=== PATIENT | male | born 1985 | race American Indian/Alaskan Native ===

== ENCOUNTER 2016-10-01 02:23 | Observation (INO) | payer OTHER ==
--- NOTE | 2016-10-01 03:25 | ED PDOC ---
HPI: Psych/Substance Abuse <Steve Monsalve - Last Filed: 10/01/16 06:47> Chief Complaint (Provider): pysch eval History Per: Patient Additional Complaint(s): 30yo M in ED for eval-sent to ED friends called EMS for alleged FB post stating that he wants to kill himself. Ptdenies posting anything, denies SI/HI/ hallucinations. <Svetlana Brian - Last Filed: 10/01/16 21:01> Time Seen by Provider: 10/01/16 03:16 Chief Complaint (Nursing): Psychiatric Evaluation Past Medical History Vital Signs: Last Vital Signs Temp 97.9 F 10/01/16 02:41 Pulse 57 L 10/01/16 02:41 Resp 10/01/16 02:41 BP 122/48 L 10/01/16 02:41 Pulse Ox 100 10/01/16 03:37 <Steve Monsalve - Last Filed: 10/01/16 06:47> Reviewed: Historical Data, Nursing Documentation, Vital Signs Vital Signs: Last Vital Signs Temp 97.9 F 10/01/16 02:41 Pulse 57 L 10/01/16 02:41 Resp 10/01/16 02:41 BP 122/48 L 10/01/16 02:41 Pulse Ox 100 10/01/16 02:41 - Medical History PMH: No Chronic Diseases - Family History Family History: States: No Known Family Hx <Svetlana Brian - Last Filed: 10/01/16 21:01> - Home Medications Home Medications: Ambulatory Orders Medication Instructions Recorded Unobtainable 10/01/16 - Allergies Allergies/Adverse Reactions: Allergies Allergy/AdvReac Type Severity Reaction Status Date / Time diphenhydramine Allergy Mild RASH Verified 10/01/16 02:45 [From Benadryl] Review of Systems ROS Statement: Except As Marked, All Systems Reviewed And Found Negative Psych: Negative for: Anxiety, Depression, Psychosis, Suicidal ideation, Withdrawal <Svetlana Brian - Last Filed: 10/01/16 21:01> Physical Exam - Reviewed Nursing Documentation Reviewed: Yes Vital Signs Reviewed: Yes - Physical Exam Appears: Positive for: Well, Non-toxic, No Acute Distress Head Exam: Positive for: ATRAUMATIC, NORMAL INSPECTION, NORMOCEPHALIC Skin: Positive for: Normal Color, Warm, DRY Eye Exam: Positive for: EOMI, Normal appearance, PERRL Cardiovascular/Chest: Positive for: Regular Rate, Rhythm Respiratory: Positive for: CNT, Normal Breath Sounds Neurologic/Psych: Positive for: Alert, Oriented <Svetlana Brian - Last Filed: 10/01/16 21:01> - Laboratory Results Result Diagrams: 10/01/16 04:45 10/01/16 04:45 <Steve Monsalve - Last Filed: 10/01/16 06:47> - Laboratory Results Result Diagrams: 10/01/16 04:45 10/01/16 04:45 - ECG O2 Sat by Pulse Oximetry: 100 - Progress ED Course And Treament: pt will be placed on 1:1 and get crisis evaluation. Re-evaluation Time: 03:36 Condition: Re-examined (pt became very agressive and required restraints and ativan IM. ) <Svetlana Brian - Last Filed: 10/01/16 21:01> Disposition - Patient ED Disposition Is Patient to be Admitted: Transfer of Care - Disposition Disposition: Transfer of Care Disposition Time: 07:00 Patient Signed Over To: Micky Pugh (Transfer pending crisis eval) <Steve Monsalve - Last Filed: 10/01/16 06:47> - Patient ED Disposition Is Patient to be Admitted: Transfer of Care <Svetlana Brian - Last Filed: 10/01/16 21:01> - Clinical Impression Clinical Impression: Depression, Laceration - Disposition Condition: FAIR
[2016-10-01 04:50] LABS: BASO # 0.1 K/uL (0.0-0.2); BASO % 1.1 % (0.0-2.0); EOS # 0.1 K/uL (0.0-0.7); EOS % 1.4 % (0.0-4.0); HEMATOCRIT 42.7 % (35.0-51.0); LYMPH # 1.4 K/uL (1.0-4.3); LYMPH % 26.4 % (20.0-40.0); MEAN CELL VOLUME 93.9 fl (80.0-94.0); MEAN CORPUSCULAR HEMOGLOBIN 31.5 pg (27.0-31.0); MEAN CORPUSCULAR HGB CONC 33.6 g/dL (33.0-37.0); MEAN PLATELET VOLUME 8.6 fl (7.2-11.7); MONO # 0.5 K/uL (0.0-0.8); MONO % 9.8 % (0.0-10.0); NEUT # 3.2 K/uL (1.8-7.0); NEUT % 61.3 % (50.0-75.0); NRBC % 0.1 % (0.0-0.0); RED CELL DISTRIBUTION WIDTH 13.2 % (11.5-14.5); WHITE BLOOD COUNT 5.2 K/uL (4.8-10.8)
[2016-10-01 05:05] LABS: ALB/GLOB RATIO 1.2 (1.0-2.1); ALCOHOL SERUM 31 mg/dl (0-10); ALKALINE PHOSPHATASE 60 U/L (38-126); ALT/SGPT 96 U/L (21-72); AST/SGOT 96 U/L (17-59); BLOOD UREA NITROGEN 6 mg/dl (9-20); CALCIUM 9.2 mg/dL (8.4-10.2); CARBON DIOXIDE 23 mmol/L (22-30); CHLORIDE 107 mmol/L (98-107); GFR AFRICAN-AMERICAN > 60; GLUCOSE,RANDOM 102 mg/dL (75-110); POTASSIUM 3.7 MMOL/L (3.6-5.0); SODIUM 141 mmol/l (132-148); TOTAL PROTEIN 7.5 G/DL (6.3-8.2)
[2016-10-01] MEDS ORDERED: Lidocaine 1% Inj (20ml) ONE (10:08)
[2016-10-01] MEDS ORDERED: Lidocaine 2% w Epi 1:100,000 Inj IJ ONE (10:10)
[2016-10-01] MEDS ORDERED: Lidocaine/Epi 1% 1:100000 20 ML IJ ONE (10:10)
--- NOTE | 2016-10-01 10:52 | ED PDOC ---
- Laboratory Results Result Diagrams: 10/01/16 04:45 10/01/16 04:45 - ECG O2 Sat by Pulse Oximetry: 100 (RA) Pulse Ox Interpretation: Normal Medical Decision Making Medical Decision Making: Receiving Sign Out: Pt signed out to me by Dr. Monsalve pending [facility] screen. Scribe Attestation: Documented by Rosa Rodrigues acting as a scribe for Micky Pugh MD. Provider Attestation: All medical record entries made by the Scribe were at my direction and personally dictated by me. I have reviewed the chart and agree that the record accurately reflects my personal performance of the history, physical exam, medical decision making, and the department course for this patient. I have also personally directed, reviewed, and agree with the discharge instructions and disposition. Disposition - Disposition Condition: FAIR Progress Note - Review of Symptoms Events since last encounter: Time: 942 Pt attempted to elope and ran into a door. Sustained 2 lip lacerations. Will suture wounds and sedate patient. 2mg Ativan and 5mg Haldol administered. See procedure note for wound care. Procedures - Time-Out Type of Procedure: Laceration repair Correct Patient: Yes Correct Procedure: Yes Physician Name: Micky Pugh - Laceration/Wound Repair Inner lip laceration Wound Length (cm): 2 Wound's Depth, Shape: superficial, linear Wound Explored: clean Betadine Prep?: Yes Anesthesia: 1% Lidocaine Wound Repaired With: Sutures Suture Size/Type: 5:0, nylon Number of Sutures: 3 Wound Complexity: Simple Progress: Pt tolerated procedure well. Outer lip laceration Wound Length (cm): 2 Wound's Depth, Shape: superficial, linear Betadine Prep?: Yes Anesthesia: 1% Lidocaine Wound Repaired With: Sutures Suture Size/Type: 5:0, nylon Number of Sutures: 3 Wound Complexity: Simple Progress: Pt tolerate procedure well.
--- NOTE | 2016-10-01 15:55 | ED PDOC ---
- Laboratory Results Result Diagrams: 10/01/16 04:45 10/01/16 04:45 - ECG O2 Sat by Pulse Oximetry: 98 (RA) Medical Decision Making Medical Decision Making: Receiving sign out: Pt signed over to me by Dr. Pugh pending crisis evaluation. Pt required medication for psychosis. Scribe Attestation: Documented by Rosa Rodrigues acting as a scribe for Radha Finnegan MD. Provider Attestation: All medical record entries made by the Scribe were at my direction and personally dictated by me. I have reviewed the chart and agree that the record accurately reflects my personal performance of the history, physical exam, medical decision making, and the department course for this patient. I have also personally directed, reviewed, and agree with the discharge instructions and disposition. Disposition - Clinical Impression Clinical Impression: Depression, Laceration - POA Present On Arrival: None - Disposition Disposition: Transfer of Care Disposition Time: 00:00 Condition: FAIR Patient Signed Over To: Steve Monsalve Handoff Comments: Pending bed availability at [facility] ED OBSERVATION Date of observation admission: 10/01/16 - Observation admission statement Patient is being placed in observation because:: Pt awaiting crisis evaluation - Goals of Observation Goals of observation are:: Crisis evaluation and final ER disposition. - Progress Note Progress Note: 10/01/16 15:55 Pt resting in room. 7p Stable. 10p Stable 12am Endorsed to Dr Monsalve. Pending bed availability. Stable.
--- NOTE | 2016-10-02 01:25 | ED PDOC ---
- Laboratory Results Result Diagrams: 10/01/16 04:45 10/01/16 04:45 - ECG O2 Sat by Pulse Oximetry: 100 Medical Decision Making Medical Decision Makin: Patient is being transferred to Dr. Monsalve pending crisis evaluation. Pt is to be screened by [facility]. Scribe Attestation: Documented by Carla Vaughan acting as a scribe for Steve Monsalve MD. Provider Scribe Attestation: All medical record entries made by theHumbertowere at my direction and personally dictated by me. I have reviewed the chart and agree that the record accurately reflects my personal performance of the history, physical exam, medical decision making, and the department course for this patient. I have also personally directed, reviewed, and agree with the discharge instructions and disposition. Disposition - Clinical Impression Clinical Impression: Depression, Laceration - POA Present On Arrival: None - Disposition Disposition: Transfer of Care Disposition Time: 07:00 Condition: FAIR Patient Signed Over To: Arron Ibanez III Handoff Comments: pending [facility] screen
[2016-10-02 03:24] LABS: RBC URINE 5 /hpf (0-3); URINE BACTERIA OCC (<OCC); URINE BILIRUBIN NEGATIVE (NEGATIVE); URINE BLOOD NEGATIVE (NEGATIVE); URINE COLOR YELLOW (YELLOW); URINE GLUCOSE (UA) NEG (Normal); URINE KETONE NEGATIVE (NEGATIVE); URINE LEUKOCYTE ESTERASE NEG Leu/uL (Negative); URINE PROTEIN NEGATIVE (NEGATIVE); URINE UROBILINOGEN 0.2-1.0 mg/dL (0.2-1.0); WBC URINE 2 /hpf (0-5)
--- NOTE | 2016-10-02 16:33 | ED PDOC ---
- Laboratory Results Result Diagrams: 10/01/16 04:45 10/01/16 04:45 - ECG ECG: Positive for: Interpreted By Me ECG Rhythm: Positive for: Normal QRS, Normal ST Segment, Sinus Rhythm O2 Sat by Pulse Oximetry: 98 (RA) Disposition - Clinical Impression Clinical Impression: Depression, Laceration - POA Present On Arrival: Falls Or Trauma - Disposition Disposition: Transfer of Care Disposition Time: 00:00 Condition: STABLE ED OBSERVATION Date of observation admission: 10/01/16 Time of observation admission: 04:20 - Observation admission statement Patient is being placed in observation because:: Was placed on obs for time intensive workup, treatment, evaluation and stabilization of psychiatric condition. - Goals of Observation Goals of observation are:: Stabilization of psychiatric condition until transfer to [facility] - Progress Note Progress Note: 3p Pt asking for books to read. Reporting he is bored and it is making him feel worse. Otherwise stable. Pending eval Dr Prado. 6p Slightly angry and asking to walk around. Able to redirect back to room. 9p Stable. Psych recommendations appreciated. 12am Endorsed to Dr Puckett pending bed availability.
--- NOTE | 2016-10-02 16:55 | CP.PCM.CON ---
History of Present Illness - History of Present Illness History of Present Illness: This is a 30 yr old male who has been brought in for psych evaluation because pt has posted on facebook that he wanted to kill himself.pt was offered in voluntary psych admission and pt refused and has been referred for screening [place] [facility] Past Patient History - Past Social History Smoking Status: Former Smoker - CARDIAC Hx Cardiac Disorders: No Hx Hypertension: No - PULMONARY Hx Tuberculosis: No - NEUROLOGICAL HX Cerebrovascular Accident: No Hx Seizures: No - HEMATOLOGICAL/ONCOLOGICAL Hx Cancer: No Hx Human Immunodeficiency Virus (HIV): No - GENITOURINARY/GYNECOLOGICAL Hx Sexually Transmitted Disorders: No - PSYCHIATRIC Hx Substance Use: No - SURGICAL HISTORY Hx Surgeries: Yes Other/Comment: dental surgery - ANESTHESIA Hx Anesthesia: No Meds Allergies/Adverse Reactions: Allergies Allergy/AdvReac Type Severity Reaction Status Date / Time diphenhydramine Allergy Mild RASH Verified 10/01/16 02:45 [From Benadryl] Results - Vital Signs Recent Vital Signs: Last Vital Signs Temp 98.2 F 10/02/16 09:20 Pulse 78 10/02/16 09:20 Resp 19 10/02/16 09:20 BP 123/76 10/02/16 09:20 Pulse Ox 98 10/02/16 16:33 - Labs Result Diagrams: 10/01/16 04:45 10/01/16 04:45 Labs: Laboratory Results - last 24 hr 10/02/16 03:06 Urine Color Yellow Urine Clarity Slighty-cloudy Urine pH 6.0 Ur Specific Karval 1.012 Urine Protein Negative Urine Glucose (UA) Neg Urine Ketones Negative Urine Blood Negative Urine Nitrate Negative Urine Bilirubin Negative Urine Urobilinogen 0.2-1.0 Ur Leukocyte Esterase Neg Urine RBC (Auto) 5 H Urine Microscopic WBC 2 Urine Bacteria Occ H
--- NOTE | 2016-10-02 23:55 | ED PDOC ---
- Laboratory Results Result Diagrams: 10/01/16 04:45 10/01/16 04:45 - ECG O2 Sat by Pulse Oximetry: 98 (RA) Medical Decision Making Medical Decision Making: Patient s/o from Dr. Finnegan at 0000 pending [facility] bed availability. Patient s/ o to Dr. Martinez at 0700 pending [facility] bed availability. Scribe Attestation: Documented by Davin Bolaños acting as a scribe for Modesta Puckett MD. Provider Scribe Attestation: All medical record entries made by the Scribe were at my direction and personally dictated by me. I have reviewed the chart and agree that the record accurately reflects my personal performance of the history, physical exam, medical decision making, and the department course for this patient. I have also personally directed, reviewed, and agree with the discharge instructions and disposition. Disposition - Clinical Impression Clinical Impression: Depression, Laceration - POA Present On Arrival: None - Disposition Disposition: Transfer of Care Disposition Time: 07:00 Condition: STABLE Patient Signed Over To: Eliseo Martinez Handoff Comments: pending [facility] bed availability ED OBSERVATION Date of observation admission: 10/01/16 Time of observation admission: 04:12 - Observation admission statement Patient is being placed in observation because:: SI - Progress Note Progress Note: 0205: Patient resting comfortably in no distress.
--- NOTE | 2016-10-03 07:17 | ED PDOC ---
- Laboratory Results Result Diagrams: 10/01/16 04:45 10/01/16 04:45 - ECG O2 Sat by Pulse Oximetry: 98 (RA) Disposition - Clinical Impression Clinical Impression: Depression, Laceration - POA Present On Arrival: None - Disposition Disposition: Transfer of Care Disposition Time: 17:00 Condition: STABLE Patient Signed Over To: Radha Finnegan ED OBSERVATION - Progress Note Progress Note: 10/03/16 07:00 signed over to me by Elias Puckett MD pending [facility] bed availability. 10/03/16 07:26 CXR from previous shift as interpreted by me: no acute infiltrates, no active disease 10/03/16 08:34 vitals are stable 1030 vitals remain stable 1200 vitals remain stable. resting comfortably 1345 vitals remain stable 10/03/16 14:21 resting comfortably 10/03/16 16:33 vitals are stable 1700 signed over to Humera Finnegan MD pending [facility] bed availability. Additional Comments - Additional Comments Additional Comments: Scribe Attestation: Documented by Fernando Henning acting as a scribe for Eliseo Martinez MD. Provider Scribe Attestation: All medical record entries made by the Scribe were at my direction and personally dictated by me. I have reviewed the chart and agree that the record accurately reflects my personal performance of the history, physical exam, medical decision making, and the department course for this patient. I have also personally directed, reviewed, and agree with the discharge instructions and disposition.
--- NOTE | 2016-10-03 09:52 | RAD ---
HISTORY: med clr COMPARISON: No prior. FINDINGS: LUNGS: Elevation left hemidiaphragm (lateral aspect greater than medial) with slight blunting left CP angle could be due to small effusion or chronic pleural thickening. PLEURA: As above. No pneumothorax apparent. CARDIOVASCULAR: Normal. OSSEOUS STRUCTURES: Mild dextroscoliosis mid thoracic region VISUALIZED UPPER ABDOMEN: Normal. OTHER FINDINGS: None. IMPRESSION: Elevation left hemidiaphragm (lateral aspect greater than medial) with slight blunting left CP angle could be due to small effusion or chronic pleural thickening.
--- NOTE | 2016-10-03 13:25 | CARD ---
APPROVED REPORT EKG Measurement Heart [id number] <Conclusion> Normal sinus rhythm Normal ECG
--- NOTE | 2016-10-03 14:39 | CP.PCM.CON ---
History of Present Illness - History of Present Illness History of Present Illness: psychiatry consult per routine reason: agitation/suicidal threats cc: i'm not crazy hpi: 30 yo male, hospitalized 6 years previously, with what seems like synthetic mj reaction- "smoked something and went into a coma?"- per chart was bizarre behavior, dx with schizophrenia and placed on risperdal which may have lowered seizure threshold. pt is now in ER after being brought by police when people became concerned with his social media posts- possible suicidal/ homicidal threats? pt also recently made suicidal threats to mother per the crisis report. pt was very agitated and tried to elope and was restrained. he is irritable now, thinking this typewriter assembly and parts inspector can discharge him home immediately. he superficially agrees to sign into hospital but then follows that up with "so i can start my discharge papers now right?" pt has been fighting with family- brother/mother and strangers in past week. 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 he denies having current psychiatric treatment. past psych: as above social history; ? homeless, has family who lives locally. substance use: drinks alcohol, denies other substance use. uds is negative medical: denies mse: alert, oriented x 3. malodorous and unkempt. mood is irritated. affect constricted. speech is with angry tone. thoughts are focused on discharge. pt is denying si/hi currently. he is denying a/v hallucinations currently. memory intact. pt is minimizing presenting behaviors. poor i/j. assessment: bipolar disorder, mixed?- pt with irritable mood, poor impulse control, anger, suicidal threats recommendation prn meds are appropriate pt is refusing oral meds and demanding to sign out, thus not a candidate to change status to voluntary [place] [facility] [place]. Past Patient History - Past Social History Smoking Status: Former Smoker - CARDIAC Hx Cardiac Disorders: No Hx Hypertension: No - PULMONARY Hx Tuberculosis: No - NEUROLOGICAL HX Cerebrovascular Accident: No Hx Seizures: No - HEMATOLOGICAL/ONCOLOGICAL Hx Cancer: No Hx Human Immunodeficiency Virus (HIV): No - GENITOURINARY/GYNECOLOGICAL Hx Sexually Transmitted Disorders: No - PSYCHIATRIC Hx Substance Use: No - SURGICAL HISTORY Hx Surgeries: Yes Other/Comment: dental surgery - ANESTHESIA Hx Anesthesia: No Meds Allergies/Adverse Reactions: Allergies Allergy/AdvReac Type Severity Reaction Status Date / Time diphenhydramine Allergy Mild RASH Verified 10/01/16 02:45 [From [place]] - Medications Medications: Current Medications Haloperidol (Haldol) 5 mg PO TID PRN PRN Reason: Agitation Haloperidol Lactate (Haldol) 5 mg IM Q6 PRN PRN Reason: Agitation Lorazepam (Ativan) 1 mg IM Q6 PRN PRN Reason: Agitation Lorazepam (Ativan) 1 mg PO TID PRN PRN Reason: Agitation Results - Vital Signs Recent Vital Signs: Last Vital Signs Temp 97.8 F 10/03/16 13:51 Pulse 75 10/03/16 13:51 Resp 18 10/03/16 13:51 BP 116/57 L 10/03/16 13:51 Pulse Ox 98 10/03/16 14:22 - Labs Result Diagrams: 10/01/16 04:45 10/01/16 04:45
--- NOTE | 2016-10-03 23:41 | ED PDOC ---
- Laboratory Results Result Diagrams: 10/01/16 04:45 10/01/16 04:45 - ECG O2 Sat by Pulse Oximetry: 98 Disposition - Clinical Impression Clinical Impression: Depression, Laceration - POA Present On Arrival: None - Disposition Disposition: Transfer of Care Disposition Time: 00:00 Condition: STABLE Patient Signed Over To: Modesta Puckett Handoff Comments: Pending bed availability [facility] [place] - Progress Note Progress Note: 5p Rec'd endorsement from Dr Martinez. Pt with suicidality and accepted for [place] [facility] [place]. Pending bed. 630p Pt attempted to leave ER. Restraints ordered. Prn meds given. 9p Stable 12a Endorsed to Dr Puckett pending bed. Stable.
--- NOTE | 2016-10-04 00:46 | ED PDOC ---
- Laboratory Results Result Diagrams: 10/01/16 04:45 10/01/16 04:45 - ECG O2 Sat by Pulse Oximetry: 98 Medical Decision Making Medical Decision Making: Patient s/o from Dr. Finneagn at 0000 pending [facility] bed availability. Patient sleeping comfortably in no distress. Patient s/o to Dr. Monsalve at 0700 pending [facility] bed availability. Scribe Attestation: Documented by Davin Bolaños acting as a scribe for Modesta Puckett MD. Provider Scribe Attestation: All medical record entries made by the Scribe were at my direction and personally dictated by me. I have reviewed the chart and agree that the record accurately reflects my personal performance of the history, physical exam, medical decision making, and the department course for this patient. I have also personally directed, reviewed, and agree with the discharge instructions and disposition. Disposition - Clinical Impression Clinical Impression: Depression, Laceration - POA Present On Arrival: None - Disposition Disposition: Transfer of Care Disposition Time: 07:00 Condition: STABLE Patient Signed Over To: Steve Monsalve Handoff Comments: pending [facility] bed availability
--- NOTE | 2016-10-04 07:08 | ED PDOC ---
- Laboratory Results Result Diagrams: 10/01/16 04:45 10/01/16 04:45 - ECG O2 Sat by Pulse Oximetry: 98 Medical Decision Making Medical Decision Making: Time: 0700 Patient signed out pending [facility] bed [place] Scribe Attestation: Documented by Jasmine Kidd acting as a scribe for Steve Monsalve MD MD Scribe Attestation: All medical record entries made by the Scribe were at my direction and personally dictated by me. I have reviewed the chart and agree that the record accurately reflects my personal performance of the history, physical exam, medical decision making, and the department course for this patient. I have also personally directed, reviewed, and agree with the discharge instructions and disposition. Disposition - Clinical Impression Clinical Impression: Depression, Laceration - POA Present On Arrival: None - Disposition Disposition: Transfer of Care Disposition Time: 17:00 Condition: STABLE Patient Signed Over To: Avani Skinner Handoff Comments: pending bed at [facility] [place]
[2016-10-04 12:32] VITALS: TEMP 97.8
--- NOTE | 2016-10-04 12:57 | CP.PCM.CON ---
History of Present Illness - History of Present Illness History of Present Illness: Psychiatry consult follow-up note, initally called for agitation/suicidal threats CC: "I don't need to go to [facility]. You need to go." *Patient yelled at typewriter repairer, refused to engage in conversation, stating that he does not need to go to [facility]. Collateral obtained from the chart below. hpi: 30 yo male, hospitalized 6 years previously, with what seems like synthetic mj reaction- "smoked something and went into a coma?"- per chart was bizarre behavior, dx with schizophrenia and placed on risperdal which may have lowered seizure threshold. pt is now in ER after being brought by police when people became concerned with his social media posts- possible suicidal/ homicidal threats? pt also recently made suicidal threats to mother per the crisis report. pt was very agitated and tried to elope and was restrained. he is irritable now, thinking this typewriter repairer can discharge him home immediately. he superficially agrees to sign into hospital but then follows that up with "so i can start my discharge papers now right?" pt has been fighting with family- brother/mother and strangers in past week. 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 he denies having current psychiatric treatment. past psych: as above social history; ? homeless, has family who lives locally. substance use: drinks alcohol, denies other substance use. uds is negative medical: denies mse: alert, oriented x 3. malodorous and unkempt. mood is irritated. affect constricted. speech is with angry tone. thoughts are focused on discharge. pt refusing to answer questions including AH/VH/SI/HI. poor i/j. assessment: bipolar disorder, mixed?- pt with irritable mood, poor impulse control, anger, suicidal threats recommendation prn meds are appropriate pt is refusing oral meds and demanding to sign out, thus not a candidate to change status to voluntary [place] [facility] [place]. Past Patient History - Past Social History Smoking Status: Former Smoker - CARDIAC Hx Cardiac Disorders: No Hx Hypertension: No - PULMONARY Hx Tuberculosis: No - NEUROLOGICAL HX Cerebrovascular Accident: No Hx Seizures: No - HEMATOLOGICAL/ONCOLOGICAL Hx Cancer: No Hx Human Immunodeficiency Virus (HIV): No - GENITOURINARY/GYNECOLOGICAL Hx Sexually Transmitted Disorders: No - PSYCHIATRIC Hx Substance Use: No - SURGICAL HISTORY Hx Surgeries: Yes Other/Comment: dental surgery - ANESTHESIA Hx Anesthesia: No Meds Allergies/Adverse Reactions: Allergies Allergy/AdvReac Type Severity Reaction Status Date / Time diphenhydramine Allergy Mild RASH Verified 10/01/16 02:45 [From [facility]] - Medications Medications: Current Medications Haloperidol (Haldol) 5 mg PO TID PRN PRN Reason: Agitation Haloperidol Lactate (Haldol) 5 mg IM Q6 PRN PRN Reason: Agitation Last Admin: 10/04/16 12:28 Dose: 5 mg Lorazepam (Ativan) 1 mg IM Q6 PRN PRN Reason: Agitation Last Admin: 10/04/16 12:28 Dose: 1 mg Lorazepam (Ativan) 1 mg PO TID PRN PRN Reason: Agitation Results - Vital Signs Recent Vital Signs: Last Vital Signs Temp 97.8 F 10/04/16 08:00 Pulse 87 10/04/16 08:00 Resp 19 10/04/16 08:00 BP 123/67 10/04/16 08:00 Pulse Ox 99 10/04/16 08:00 - Labs Result Diagrams: 10/01/16 04:45 10/01/16 04:45
--- NOTE | 2016-10-04 17:03 | ED PDOC ---
- Laboratory Results Result Diagrams: 10/01/16 04:45 10/01/16 04:45 - ECG O2 Sat by Pulse Oximetry: 98 - Progress ED Course And Treament: Pt sleeping comfortably, 1:1 observation maintained. Re-evaluation Time: 18:30 Condition: Unchanged Disposition - Clinical Impression Clinical Impression: Depression, Laceration - POA Present On Arrival: None - Disposition Disposition: Transfer of Care Disposition Time: 19:00 Condition: STABLE Patient Signed Over To: Trenton Dahl Handoff Comments: Pending transfer to [facility]. Addendum Addendum: 10/04/16 17:03 Pt signed our by Dr. Monsalve pending [facility] transfer.
--- NOTE | 2016-10-04 19:27 | ED PDOC ---
- Laboratory Results Result Diagrams: 10/01/16 04:45 10/01/16 04:45 - ECG O2 Sat by Pulse Oximetry: 98 - Progress ED Course And Treament: Patient is sleeping comfortably. 1:1 observation is maintained. Re-evaluation Time: 20:00 Condition: Re-examined, Unchanged Medical Decision Making Medical Decision Makin:00 Patient is signed out to me by Avani Skinner MD [place] [facility] [place]. Upon bed availability pt transferred [place] [facility] [place] 1[place] uneventfully Scribe Attestation: Documented by Noemi Melvin, acting as a scribe for Trenton Dahl MD. Provider Scribe Attestation: All medical record entries made by the Scribe were at my direction and personally dictated by me. I have reviewed the chart and agree that the record accurately reflects my personal performance of the history, physical exam, medical decision making, and the department course for this patient. I have also personally directed, reviewed, and agree with the discharge instructions and disposition. Disposition - Clinical Impression Clinical Impression: Depression, Laceration - POA Present On Arrival: None - Disposition Disposition: Transfer of Care Disposition Time: 01:00 Condition: STABLE
[2016-10-05] VITALS: BP 128/62; PULSE 82; RESP 16
[2016-10-05 03:58] VITALS: O2SAT 98
== END 2016-10-05 00:45 ==
LOC: H.ER 02:23 → H.EROBSV 04:12
PROVIDERS: ADMIT Emergency Medicine; ATTEND Emergency Medicine
DX: F31.60 Bipolar disorder, current episode mixed, unspecified (principal); R45.851 Suicidal ideations; F63.9 Impulse disorder, unspecified; S01.511A Laceration without foreign body of lip, initial encounter; W22.01XA Walked into wall, initial encounter; Z78.1 Physical restraint status; Z87.891 Personal history of nicotine dependence; Z59.0 Homelessness; Y92.9 Unspecified place or not applicable

== ENCOUNTER 2018-09-11 04:41 | Emergency (ER) | payer SELFPAY ==
[2018-09-11 05:14] VITALS: BMI 27.8
[2018-09-11 05:18] VITALS: BP 108/71; PULSE 64; RESP 18; TEMP 98.5; O2SAT 98
--- NOTE | 2018-09-11 07:55 | ED PDOC ---
Lower Extremity Pain/Injury Time Seen by Provider: 09/11/18 05:10 Chief Complaint (Nursing): Lower Extremity Problem/Injury Chief Complaint (Provider): Bilateral foot pain History Per: Patient History/Exam Limitations: no limitations Onset/Duration Of Symptoms: Hrs Current Symptoms Are (Timing): Still Present Additional Complaint(s): 32 year old male with a history of bipolar disorder presents to the ED for an evaluation of bilateral foot pain. Patient states he walked many miles for 2 hours after his sister kicked him out. Denies other complaints. PMD:Non H provider Past Medical History Reviewed: Historical Data, Nursing Documentation, Vital Signs Vital Signs: Last Vital Signs Temp 98.5 F 09/11/18 05:14 Pulse 64 09/11/18 05:14 Resp 18 09/11/18 05:14 BP 108/71 09/11/18 05:14 Pulse Ox 98 09/11/18 05:14 - Medical History PMH: Bipolar Disorder Denies: Diabetes, Hepatitis, HIV, HTN, Seizures, Sexually Transmitted Disease - Surgical History Surgical History: No Surg Hx - Family History Family History: States: Unknown Family Hx - Social History Ex-Smoker (has not smoked in the last 12 months): No Alcohol: Social - Home Medications Home Medications: Ambulatory Orders Medication Instructions Recorded Unobtainable 10/01/16 - Allergies Allergies/Adverse Reactions: Allergies Allergy/AdvReac Type Severity Reaction Status Date / Time diphenhydramine Allergy Mild RASH Verified 09/11/18 05:14 [From Benadryl] Review of Systems ROS Statement: Except As Marked, All Systems Reviewed And Found Negative Constitutional: Negative for: Fever Musculoskeletal: Positive for: Foot Pain (bilateral) Physical Exam - Reviewed Nursing Documentation Reviewed: Yes Vital Signs Reviewed: Yes - Physical Exam Appears: Positive for: Non-toxic, No Acute Distress. Negative for: Well (poor hygiene) Neck: Positive for: Normal, Painless ROM Cardiovascular/Chest: Positive for: Regular Rate, Rhythm Respiratory: Positive for: Normal Breath Sounds. Negative for: Respiratory Distress Gastrointestinal/Abdominal: Positive for: Soft Extremity: Positive for: Normal ROM, Capillary Refill (less than 2 s, pulses 2+ neurovascular intact), Other (no swelling, tenderness or deformtiy of either foot). Negative for: Tenderness, Pedal Edema, Deformity, Swelling Neurological/Psych: Positive for: Awake, Alert, Normal Tone, Oriented (x3) - ECG O2 Sat by Pulse Oximetry: 98 (RA) Pulse Ox Interpretation: Normal Medical Decision Making Medical Decision Making: Time: 519 Plan: pt currently requesting food. given to pt Patient did not want to wait for crisis team to provide him a list of shelters. Scribe Attestation: Documented by Jeni Harrington, acting as a scribe for Modesta Puckett MD Provider Scribe Attestation: All medical record entries made by the Scribe were at my direction and perso johnnie dictated by me. I have reviewed the chart and agree that the record accurately reflects my personal performance of the history, physical exam, medical decision making, and the department course for this patient. I have also personally directed, reviewed, and agree with the discharge instructions and disposition. Disposition - Clinical Impression Clinical Impression: Homelessness - Patient ED Disposition Is Patient to be Admitted: No Counseled Patient/Family Regarding: Diagnosis, Need For Followup - Disposition Disposition: Routine/Home Disposition Time: 07:17 Condition: IMPROVED Additional Instructions: follow up as an outpatient at [facility] return to the ED with any worsening or concerning symptoms Forms: [employer] (Niuean)
== END 2018-09-11 07:17 | disposition home or self-care (01) ==
LOC: H.ER 04:41
DX: Z76.5 Malingerer [conscious simulation] (principal); Z59.0 Homelessness; Z86.59 Personal history of other mental and behavioral disorders; Z87.891 Personal history of nicotine dependence; Z88.8 Allergy status to other drugs, medicaments and biological substances

== ENCOUNTER 2018-09-14 02:15 | Emergency (ER) | payer SELFPAY ==
[2018-09-14 02:15] VITALS: BMI 27.8
[2018-09-14 03:54] VITALS: RESP 18; O2SAT 99
--- NOTE | 2018-09-14 04:02 | ED PDOC ---
HPI: General Adult Time Seen by Provider: 09/14/18 03:43 Chief Complaint (Nursing): Anxiety Chief Complaint (Provider): Anxiety History Per: Patient History/Exam Limitations: no limitations Additional Complaint(s): 32 years old male with no significant PMHx presents to ER admittedly to sleep. 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 Patient states when he gets off work in the early mornings he doesn't have a direct ride home and reports by the time he arrives home, he is fully awake and needs to return back to work. He reports couple of days ago he was hearing voices and states after drinking lots of caffeine, he started having palpitations. Patient denies hallucinations, suicidal or homicidal ideation. PMD: None provided Past Medical History Reviewed: Historical Data, Nursing Documentation, Vital Signs Vital Signs: Last Vital Signs Temp 98.6 F 09/14/18 03:42 Pulse 98 H 09/14/18 03:42 Resp 18 09/14/18 03:42 BP 136/80 09/14/18 03:42 Pulse Ox 99 09/14/18 03:42 - Medical History PMH: Bipolar Disorder Denies: Diabetes, Hepatitis, HIV, HTN, Seizures, Sexually Transmitted Disease - Surgical History Surgical History: No Surg Hx - Family History Family History: States: Unknown Family Hx - Home Medications Home Medications: Ambulatory Orders Medication Instructions Recorded Unobtainable 10/01/16 - Allergies Allergies/Adverse Reactions: Allergies Allergy/AdvReac Type Severity Reaction Status Date / Time diphenhydramine Allergy Mild RASH Verified 09/14/18 03:54 [From Benadryl] Review of Systems ROS Statement: Except As Marked, All Systems Reviewed And Found Negative Psych: Negative for: Suicidal ideation (or homicidal) Physical Exam - Reviewed Nursing Documentation Reviewed: Yes Vital Signs Reviewed: Yes - Physical Exam Appears: Positive for: Well, No Acute Distress Head Exam: Positive for: ATRAUMATIC, NORMOCEPHALIC Skin: Positive for: Normal Color, Warm, Dry Eye Exam: Positive for: Normal appearance, EOMI, PERRL ENT: Positive for: Normal ENT Inspection Neck: Positive for: Normal, Painless ROM, Supple Cardiovascular/Chest: Positive for: Regular Rate, Rhythm. Negative for: Murmur Respiratory: Positive for: Normal Breath Sounds. Negative for: Respiratory Distress Gastrointestinal/Abdominal: Positive for: Normal Exam, Soft. Negative for: Tenderness Back: Positive for: Normal Inspection. Negative for: L CVA Tenderness, R CVA Tenderness Extremity: Positive for: Normal ROM. Negative for: Pedal Edema, Deformity Neurological/Psych: Positive for: Awake, Alert, Oriented (x3) - ECG O2 Sat by Pulse Oximetry: 99 (RA) Pulse Ox Interpretation: Normal Medical Decision Making Medical Decision Making: Time: 357 MDM: malingering with the goal of having a bed to sleep on Patient to be discharged home. Scribe Attestation: Documented by Melanie Brown, acting as a scribe for Noemi Nicholson MD. Provider Scribe Attestation: All medical record entries made by the Scribe were at my direction and personally dictated by me. I have reviewed the chart and agree that the record accurately reflects my personal performance of the history, physical exam, medical decision making, and the department course for this patient. I have also personally directed, reviewed, and agree with the discharge instructions and disposition. Disposition - Clinical Impression Clinical Impression: Malingering - Patient ED Disposition Is Patient to be Admitted: No - Disposition Disposition: Routine/Home Disposition Time: 03:58 Condition: STABLE
[2018-09-14 07:52] VITALS: BP 119/63; PULSE 88; TEMP 97.6
== END 2018-09-14 06:35 | disposition home or self-care (01) ==
LOC: H.ER 02:15
DX: Z76.5 Malingerer [conscious simulation] (principal); Z86.59 Personal history of other mental and behavioral disorders; Z88.8 Allergy status to other drugs, medicaments and biological substances